=== PATIENT | female | born 1935 | race Caucasian/White ===

== ENCOUNTER 2018-10-12 22:14 | Inpatient (IN) | payer MEDICARE, MEDICAID ==
[~2018-10-12] VITALS: Ht 162.6 cm; Wt 56.7 kg
--- NOTE | 2018-10-12 22:35 | NUR ---
Pt bib ambulanz unit #[id number] from [facility] for medical clearance. Pt is on a 5150 for GD. Upon assessment, pt is AAO x 1 and speaking in complete sentences. Respirations even and unlabored. Pt denies CP, SOB, N/V/D. Pt placed in monitor. Safe environment implemented.
[2018-10-12] MEDS ORDERED: CRAN450C PO (22:42)
[2018-10-12] MEDS ORDERED: MELA3TAB PO (22:42)
[2018-10-12] MEDS ORDERED: MAG355OR18 PO (22:42)
[2018-10-12] MEDS ORDERED: MAGN400O6 PO (22:42)
[2018-10-12] MEDS ORDERED: MULT1TAB73 PO (22:42)
[2018-10-12] MEDS ORDERED: ACET-2154 PO (22:42)
[2018-10-12 22:48] LABS: BASOPHILS % (AUTO) 0.7 % (0.0-2.0); EOSINOPHILS # (AUTO) 0.2 K/uL (0.0-0.7); EOSINOPHILS % (AUTO) 2.6 % (0.0-7.0); HEMATOCRIT 38.1 % (31.2-41.9); HEMOGLOBIN 12.9 g/dL (10.9-14.3); LYMPHOCYTES # (AUTO) 1.9 K/uL (20.0-40.0); MEAN CORPUSCULAR HEMOGLOBIN 30.7 uug (24.7-32.8); MEAN CORPUSCULAR HGB CONC 34 g/dL (32.3-35.6); MEAN CORPUSCULAR VOLUME 90.8 fL (75.5-95.3); MONOCYTES # (AUTO) 0.3 K/uL (2.0-10.0); MONOCYTES % (AUTO) 5.4 % (0.0-11.0); NEUTROPHILS # (AUTO) 3.8 K/uL (1.8-8.9); NEUTROPHILS % (AUTO) 60.3 % (38.5-71.5); PLATELET COUNT (AUTO) 279 K/uL (179-408); WHITE BLOOD COUNT (AUTO) 6.3 K/uL (3.8-11.8)
[2018-10-12 23:04] LABS: CARBON DIOXIDE 28 mmol/L (21-32); CHLORIDE 103 mmol/L (98-107); CREATININE 0.8 mg/dL (0.6-1.3); GLUCOSE 146 mg/dL (74-106); POTASSIUM 3.8 mmol/L (3.5-5.1); UREA NITROGEN, BLOOD 24 mg/dL (7-18)
[2018-10-12 23:09] LABS: ETHANOL < 3 MG/DL (0-0)
[2018-10-12 23:17] LABS: ALANINE AMINOTRANSFERASE 28 U/L (14-59); ALKALINE PHOSPHATASE 97 U/L (50-136); ASPARTATE AMINOTRANSFERASE 19 U/L (15-37); BILIRUBIN,DIRECT < 0.1 mg/dL (0.0-0.2); BILIRUBIN,TOTAL 0.2 mg/dL (0.2-1.0); TOTAL PROTEIN, SERUM 7.3 g/dL (6.4-8.2)
[2018-10-12 23:28] LABS: ACETAMINOPHEN < 2.0 ug/mL (10-30)
[2018-10-12 23:58] LABS: *BILIRUBIN,URIN NEGATIVE (NEGATIVE); *BLOOD, URINE NEGATIVE (NEGATIVE); *CLARITY,URINE CLEAR (CLEAR); *COLOR,URINE YELLOW (YELLOW); *KETONES,URINE NEGATIVE (NEGATIVE); *UROBILINOGEN,URINE 0.2 E.U./dl (NORMAL); LEUKOCYTE ESTERASE ,URINE NEGATIVE (NEGATIVE); NITRITE, URINE NEGATIVE (NEGATIVE); PH,URINE 5.5 (5.0-8.0); UGLUCOSE NEGATIVE (NEGATIVE)
[2018-10-13] MEDS ORDERED: MAG HYDROX/AL HYDROX/SIMETH 30 ML LIQUID UDC PO PRN
[2018-10-13] MEDS ORDERED: ACETAMINOPHEN 325 MG TABLET PO PRN
[2018-10-13 00:02] LABS: *AMPHETAMINE, URINE NEGATIVE (NEGATIVE); *BARBITURATE, URINE NEGATIVE (NEGATIVE); *CANNABINOID, URINE NEGATIVE (NEGATIVE); *COCCAINE, URINE NEGATIVE (NEGATIVE); *OPIATE, URINE NEGATIVE (NEGATIVE); *PHENCYCLIDINE SCREEN,URINE NEGATIVE (NEGATIVE)
[2018-10-13 00:21] LABS: BACTERIA,URINE NONE SEEN /HPF (NONE SEEN); MUCUS,URINE MODERATE /LPF (0-FEW); RBC,URINE 0-3 /HPF (0-3); RENAL EPITHELIAL CELLS,URINE FEW /LPF (NONE SEEN); SQUAMOUS EPITHELIAL CELL,UR FEW /HPF (NONE SEEN); TRANSITIONAL EPI CELLS,URINE FEW /LPF (NONE SEEN)
--- NOTE | 2018-10-13 00:31 | NUR ---
Pt medically cleared by JOSEPH SKAGGS.
--- NOTE | 2018-10-13 00:31 | NUR ---
Report given to Irvin KEARNS
--- NOTE | 2018-10-13 00:37 | NUR ---
Pt. admitted to MHU , under care of Dr. Wright/Michelle Belongs List completed
[2018-10-13] MEDS ORDERED: hydrALAZINE HCL 25 MG TABLET PO ONE (01:15)
--- NOTE | 2018-10-13 01:20 | NUR ---
GPS: Admitted to unit earlier an 83 yr.old female who was medically cleared in our ER. Pt.is on a 72 hour hold for GD. Pt.has been refusing to eat,agitated,pacing in her room and unable to be re-directed at her facility,per hold. Pt.is alert to self,confused,disoriented. Unable to say why she's in the hosp. Poor insight to present situation. Gait is slow and steady but with hx of falls. Safety emphasized. Body assessment/personal belongings completed. B/P noted to be high at this time 190/100. HANDLE ATTACHER Oscar Perez informed with orders. Denies any headaches,blurred vision at this time. Apresoline 25mg given PO X1 as ordered. Will continue to monitor.
[2018-10-13 01:27] VITALS: BP 190/100
--- NOTE | 2018-10-13 06:42 | NUR ---
GPS: Pt.is anxious,pacing,easily irritable when being re-directed. Confused and disoriented. Staff attempted to re-check pts B/P but strongly refused despite explanation of importance. Ativan 0.5mg offered but refused despite numerous attempts by staff. Safe environment provided. Will continue to monitor behavior for further escalation.
[2018-10-13] MEDS: LORAZEPAM 0.5 MG TABLET PO PRN ×2 (06:46→10:40)
[2018-10-13 07:30] VITALS: BP 146/88
--- NOTE | 2018-10-13 12:14 | NUR ---
Activity group note: Patients were asked to answer the question of "What is one thing you would change about yourself and why? Subjective: "No, not really" Objective: Patient appeared happy to participate in activity and sit in group. Patient did not want to answer clinical topic question. Assessment: Patient needs help with expressing self. Plan: Encourage group attendance as scheduled. psychiatric social worker will help patient to express self by speaking with her on a one to one basis. psychiatric social worker will continue to encourage group participation.
[2018-10-13] MEDS ORDERED: MAGNESIUM HYDROXIDE 30 ML LIQUID UDC PO PRN ×2 (12:15)
[2018-10-13] MEDS: CLOTRIMAZOLE 1% CREAM 30 GM TUBE TOP SCH ×2 (14:50→20:08)
[2018-10-13 16:00] VITALS: BP 156/107
[2018-10-13 20:02] VITALS: BP 146/78
[2018-10-13] MEDS: ESCITALOPRAM OXALATE 10 MG TABLET PO SCH (20:07)
[2018-10-13] MEDS: risperiDONE 0.5 MG TABLET PO SCH (20:07)
[2018-10-13] MEDS: TEMAZEPAM 7.5 MG CAPSULE PO PRN (22:18)
[2018-10-14 07:30] VITALS: BP 133/89
[2018-10-14] MEDS: MULTIVITAMINS,THERAPEUTIC TABLET PO SCH (08:11)
[2018-10-14] MEDS: CLOTRIMAZOLE 1% CREAM 30 GM TUBE TOP SCH ×2 (08:12→22:05)
[2018-10-14] MEDS ORDERED: Medication Not On Formulary EA (Multivitamins (Multivitamin) 1 EACH) PO SCH (09:00)
[2018-10-14] MEDS ORDERED: Medication Not On Formulary EA (Cranberry Fruit Concentrate (Cranberry) 450 MG) PO SCH (09:00)
--- NOTE | 2018-10-14 14:35 | NUR ---
Gps/Hand Presser- Dr Martinez was called informed of patient positive MRSA Nares, orders received. Patient started on contact isolations, observed, pt. informed.
--- NOTE | 2018-10-14 15:13 | NUR ---
Gps/Master Machinist- Patient tends to wander around, unable to find her room, speech incoherent/confused, no initiation to feed self, needed prompting , staff tries to assist patient w/ her meals.Poor insight, monitored safety.
[2018-10-14 16:00] VITALS: BP 137/69
[2018-10-14] MEDS: MUPIROCIN 2% OINT 22 GM TUBE NS SCH ×2 (16:20→22:05)
--- NOTE | 2018-10-14 17:50 | NUR ---
Gps/Service Crew Leader- Continue to assist pt. w/ her meals, not initiating tasks to feed self.Contact isolation observed ,in progress.
--- NOTE | 2018-10-14 18:17 | NUR ---
Gps/Padding Gluer- Patient will be transfer to room # 223, as MHU (Psych overflow) patient on contact isolation , r/t MRSA nares. Report was given to Georgette Parekh.
--- NOTE | 2018-10-14 18:45 | NUR ---
[facility], not in any form of distress. Alert x1-2. Denies any pain. Re-oriented as necessary. Tend to pace around but redirected. On contact isolation for MRSA. Sitter at bedside.
[2018-10-14 20:00] VITALS: BP 156/87
[2018-10-14] MEDS: risperiDONE 0.5 MG TABLET PO SCH (22:10)
[2018-10-14] MEDS: ESCITALOPRAM OXALATE 10 MG TABLET PO SCH (22:11)
[2018-10-15] MEDS: MULTIVITAMINS,THERAPEUTIC TABLET PO SCH (08:12)
[2018-10-15] MEDS: CLOTRIMAZOLE 1% CREAM 30 GM TUBE TOP SCH ×2 (08:13→20:09)
[2018-10-15] MEDS: MUPIROCIN 2% OINT 22 GM TUBE NS SCH ×2 (08:13→20:08)
[2018-10-15 10:11] VITALS: BP 131/67
--- NOTE | 2018-10-15 11:37 | NUR ---
Initial Discharge Instructions: The patient currently resides at [facility] [facility] [facility] [place] [address] [[phone]]. Per Kassandra at the SNF, the patient may return when ready. ANTHONY Manager Proposal spoke to patient's son, Alex Galarza ([phone]) who states he would like pt to return there as well. Per son, he is the conservator of the patient, and states he will bring the appropriate paperwork the next time he visits the patient. The ANTHONY Espino and other SW will continue to collaborate with DPOA and interdisciplinary team to ensure a safe and proper discharge planning.
--- NOTE | 2018-10-15 13:42 | NUR ---
Discharge Planning: SW Director Packaging followed up with pt.s son, Alex Guerrier [[phone]] ON 10/15/18 regarding conservatorship paperwork he was to drop off on 10/13/18 and Director Packaging informed Alex that patient has now been moved to medical floor in room 223. Per son, he was not able to make it on 10/13/18 but he is planning to drop off the paperwork on Thursday10/16/18 during visiting hours 3-6 pm.
[2018-10-15] MEDS: LORAZEPAM 0.5 MG TABLET PO PRN (15:45)
[2018-10-15] MEDS: CLONIDINE HCL 0.1 MG TABLET PO PRN (19:51)
[2018-10-15 20:08] VITALS: BP 161/97
[2018-10-15] MEDS: risperiDONE 0.5 MG TABLET PO SCH (20:08)
[2018-10-15] MEDS: ESCITALOPRAM OXALATE 10 MG TABLET PO SCH (20:08)
[2018-10-15] MEDS: TEMAZEPAM 7.5 MG CAPSULE PO PRN (22:11)
[2018-10-16 05:44] VITALS: BP 158/87
--- NOTE | 2018-10-16 06:48 | NUR ---
PATIENT ASLEEP IN BED. SLEPT WELL. PATIENT SLEPT 6 HOURS AND 30 MINUTES. CONFUSED AND DISORIENTED BUT ABLE TO REDIRECT. SITTER AT BEDSIDE FOR SAFETY. ALL NEEDS ATTENDED. WILL CONTINUE TO MONITOR.
[2018-10-16 07:51] VITALS: BP 155/77
--- NOTE | 2018-10-16 08:00 | NUR ---
awake, confused, cooperative, able to redirect, sitter at bedside, safety environment maintained, assisted by sitter with needs. no distress noted, took breakfast well
[2018-10-16] MEDS: CLOTRIMAZOLE 1% CREAM 30 GM TUBE TOP SCH ×2 (08:41→20:21)
[2018-10-16] MEDS: MULTIVITAMINS,THERAPEUTIC TABLET PO SCH (08:41)
[2018-10-16] MEDS: MUPIROCIN 2% OINT 22 GM TUBE NS SCH ×2 (08:41→20:21)
--- NOTE | 2018-10-16 12:00 | NUR ---
GUN PROFILER sitter at bedside, pt initiates task for meal, mrsa nares isolation observed, sitting on chair as need with assist
[2018-10-16 12:14] VITALS: BP 148/79
--- NOTE | 2018-10-16 16:00 | NUR ---
Received from MHU overflow alert, confused. On Room air, no shortness of breath noted. No c/o pain. Noted redness on forehead. Kept on isolation room for contact MRSA nares. Ambulates with steady gait. No noted skin breakdown. Frequently states that she wants to go home, re directed. will continue to monitor.
--- NOTE | 2018-10-16 16:07 | NUR ---
wheeled to [facility] Rm 139 in stable condition by URMILA nixon
[2018-10-16 20:00] VITALS: BP 179/88
[2018-10-16] MEDS: risperiDONE 0.5 MG TABLET PO SCH (20:20)
[2018-10-16] MEDS: ESCITALOPRAM OXALATE 10 MG TABLET PO SCH (20:20)
[2018-10-16] MEDS: TEMAZEPAM 7.5 MG CAPSULE PO PRN (21:34)
[2018-10-16] MEDS: CLONIDINE HCL 0.1 MG TABLET PO PRN (21:35)
[2018-10-17] MEDS: LORAZEPAM 0.5 MG TABLET PO PRN (00:29)
[2018-10-17] MEDS: ONDANSETRON ODT 4 MG TAB.RAPDIS SL PRN ×2 (03:10→20:26)
--- NOTE | 2018-10-17 05:04 | NUR ---
Received Pt wandering aimlessly around the unit not compliant with contact isolation precautions for MRSA/nares, and uncooperative with staff direction to wear a face mask or remain in her room for safety reasons due to the infectious process. A+Ox1, Pt is confused, disorganized, disoriented, forgetful, and requires frequent redirection. Pt initially refused VS and required extensive prompting and encouragement to take her medications. Pt later calmed and allowed VS to be taken. BP elevated, Catapres 0.1mg administered as ordered, Pt refused re-check of BP and became agitated and combative with staff when she saw the VS machine. Pt remained uncooperative and argumentative, continuously wandering out of her room and into other's rooms. Pt was eventually placed in marylou chair for safety reasons. Pt remained disorganized, and constantly disrobed despite frequent directions to remain clothed. Pt given Restoril 7.5mg for restlessness which was ineffective. Ativan 0.5mg administered for anxiety, also ineffective. Pt remains in marylou chair in front of nurse's station for safety. Rash noted under bilateral breasts, Clomitrozole applied as ordered. Pt remains resistant to care. Breathing even and unlabored, appears to be in no acute physical distress.
--- NOTE | 2018-10-17 06:36 | NUR ---
Pt given shower this morning, slept a total of 1 hour.
[2018-10-17 07:30] VITALS: BP 157/90
[2018-10-17] MEDS ORDERED: AMLODIPINE 5 MG TABLET PO SCH (09:00)
[2018-10-17] MEDS: MUPIROCIN 2% OINT 22 GM TUBE NS SCH ×2 (10:24→20:27)
[2018-10-17] MEDS: MULTIVITAMINS,THERAPEUTIC TABLET PO SCH (10:24)
[2018-10-17] MEDS: CLOTRIMAZOLE 1% CREAM 30 GM TUBE TOP SCH ×2 (10:25→20:27)
[2018-10-17 15:17] VITALS: BP 136/79
[2018-10-17 20:00] VITALS: BP 121/81
[2018-10-17] MEDS: risperiDONE 0.25 MG TABLET PO SCH (20:25)
[2018-10-17] MEDS: AMLODIPINE 5 MG TABLET PO SCH (20:26)
[2018-10-17] MEDS: ESCITALOPRAM OXALATE 10 MG TABLET PO SCH (20:27)
[2018-10-17] MEDS ORDERED: risperiDONE 0.5 MG TABLET PO SCH (21:00)
[2018-10-17] MEDS: TEMAZEPAM 7.5 MG CAPSULE PO PRN (22:01)
--- NOTE | 2018-10-18 06:23 | NUR ---
Pt remains disoriented, confused, and disorganized, Pt c/o nausea and abd pain early in the shift, administered Zofran 4mg as ordered with good effect. Compliant with crushed medications, snacks given and consumed 100%. Pt noted to be restless, Restoril 7.5mg administered with good effect, Pt slept throughout most of the shift visible in front of the nurse's station, breathing even and unlabored. In no acute physical distress.
[2018-10-18 07:30] VITALS: BP 119/74
[2018-10-18] MEDS: risperiDONE 0.25 MG TABLET PO SCH ×2 (08:51→20:06)
[2018-10-18] MEDS: MUPIROCIN 2% OINT 22 GM TUBE NS SCH ×2 (08:51→20:06)
[2018-10-18] MEDS: AMLODIPINE 5 MG TABLET PO SCH ×2 (08:51→20:09)
[2018-10-18] MEDS: CLOTRIMAZOLE 1% CREAM 30 GM TUBE TOP SCH ×2 (08:51→20:06)
[2018-10-18] MEDS: MULTIVITAMINS,THERAPEUTIC TABLET PO SCH (09:00)
[2018-10-18] MEDS: LORAZEPAM 0.5 MG TABLET PO PRN ×2 (12:24→19:37)
[2018-10-18 15:18] VITALS: BP 91/58
[2018-10-18 20:00] VITALS: BP 113/77
[2018-10-18] MEDS: ESCITALOPRAM OXALATE 10 MG TABLET PO SCH (20:05)
[2018-10-19] MEDS: TEMAZEPAM 7.5 MG CAPSULE PO PRN (00:01)
[2018-10-19] MEDS: LORAZEPAM 0.5 MG TABLET PO PRN (01:07)
[2018-10-19 07:25] LABS: BASOPHILS % (AUTO) 0.4 % (0.0-2.0); EOSINOPHILS # (AUTO) 0.1 K/uL (0.0-0.7); EOSINOPHILS % (AUTO) 1.1 % (0.0-7.0); HEMATOCRIT 37.2 % (31.2-41.9); HEMOGLOBIN 12.8 g/dL (10.9-14.3); LYMPHOCYTES # (AUTO) 1.2 K/uL (20.0-40.0); LYMPHOCYTES % (AUTO) 18.1 % (20.5-51.5); MEAN CORPUSCULAR HEMOGLOBIN 31.1 uug (24.7-32.8); MEAN CORPUSCULAR HGB CONC 35 g/dL (32.3-35.6); MEAN CORPUSCULAR VOLUME 90.2 fL (75.5-95.3); MONOCYTES # (AUTO) 0.6 K/uL (2.0-10.0); MONOCYTES % (AUTO) 8.3 % (0.0-11.0); NEUTROPHILS # (AUTO) 4.8 K/uL (1.8-8.9); NEUTROPHILS % (AUTO) 72.1 % (38.5-71.5); PLATELET COUNT (AUTO) 223 K/uL (179-408); RED BLOOD CELL COUNT(AUTO) 4.12 MIL/uL (3.63-4.92); WHITE BLOOD COUNT (AUTO) 6.7 K/uL (3.8-11.8)
[2018-10-19 07:30] VITALS: BP 165/50
[2018-10-19 07:45] LABS: CARBON DIOXIDE 28 mmol/L (21-32); CHLORIDE 103 mmol/L (98-107); CREATININE 0.6 mg/dL (0.6-1.3); GLUCOSE 112 mg/dL (74-106); POTASSIUM 3.7 mmol/L (3.5-5.1); UREA NITROGEN, BLOOD 31 mg/dL (7-18)
[2018-10-19] MEDS: AMLODIPINE 5 MG TABLET PO SCH ×2 (08:21→21:12)
[2018-10-19] MEDS: MULTIVITAMINS,THERAPEUTIC TABLET PO SCH (08:21)
[2018-10-19] MEDS: risperiDONE 0.25 MG TABLET PO SCH ×2 (08:21→21:05)
[2018-10-19] MEDS: MUPIROCIN 2% OINT 22 GM TUBE NS SCH ×2 (09:40→21:13)
[2018-10-19] MEDS: CLOTRIMAZOLE 1% CREAM 30 GM TUBE TOP SCH ×2 (09:41→21:13)
--- NOTE | 2018-10-19 11:16 | NUR ---
Firearms Report: ANTHONY completed and submitted [employer] firearms report for 5250 GD certification.
[2018-10-19 15:40] VITALS: BP 133/71
[2018-10-19 20:35] VITALS: BP 161/76
[2018-10-19] MEDS: CLONIDINE HCL 0.1 MG TABLET PO PRN (20:35)
--- NOTE | 2018-10-19 20:35 | NUR ---
RECEIVED PATIENT SITTING UP IN A TAZ CHAIR, SHE WAS NOTED ASLEEP BUT EASILY AROUSABLE. PT WAS CALM PLEASANT AND COOPERATIVE UPON APPROACHED. PATIENT'S B/P IS 161/76 AND PULSE 71. CLONIDINE 0.1MG PO PRN WAS GIVEN FOR SBP >160MMHG. SHE WAS REASSURED FOR HER SAFETY. WILL CONTINUE TO MONITOR.
[2018-10-19] MEDS: ESCITALOPRAM OXALATE 10 MG TABLET PO SCH (21:05)
--- NOTE | 2018-10-19 21:15 | NUR ---
PATIENT'S B/P WAS RECHECKED: BP 152/83MMHG. NORVASC 5MG PO QHS WAS GIVEN WELL THE REST OF HER QHS MEDICATION. PATIENT REMAINS COMPLIANT WITH MEDICATION REGIMENT, NO AGGRESSIVE/ COMBATIVE BX WAS NOTED AT THIS TIME. WILL GONZALOUE TO MONITOR.
[2018-10-19 22:44] VITALS: BP 110/60
[2018-10-20 07:30] VITALS: BP 110/58
[2018-10-20] MEDS: risperiDONE 0.25 MG TABLET PO SCH ×2 (09:39→20:14)
[2018-10-20] MEDS: AMLODIPINE 5 MG TABLET PO SCH ×2 (09:40→20:15)
[2018-10-20] MEDS: MULTIVITAMINS,THERAPEUTIC TABLET PO SCH (09:40)
[2018-10-20] MEDS: CLOTRIMAZOLE 1% CREAM 30 GM TUBE TOP SCH ×2 (09:42→20:16)
[2018-10-20] MEDS: MUPIROCIN 2% OINT 22 GM TUBE NS SCH ×2 (09:42→20:16)
--- NOTE | 2018-10-20 15:53 | NUR ---
GROUP NOTE: Patients were asked to attend group to draw pictures of their favorite animals and describe how that animal may represent who they are. S: "---" O: Patient was not present in group A: She presented sleeping at the time it began. Patient was not able to be woken up. P: SW will continue to encourage pt to attend group as scheduled.
[2018-10-20 16:00] VITALS: BP 117/62
[2018-10-20] MEDS: ESCITALOPRAM OXALATE 10 MG TABLET PO SCH (20:14)
--- NOTE | 2018-10-20 20:15 | NUR ---
RECEIVED PATIENT IN HER ROOM ASLEEP BUT EASILY AROUSABLE. SHE IS NOTED A/O X 1, CALM AND PLEASANT UPON APPROACHED. V/S STABLE AT THIS TIME. TEMP 99.6F AXILLARY. SHE REFUSED TO HAVE HER TEMPERATURE TAKEN ORALLY, SHE STARED GETTING IRRITATED, SHE ALSO C/O RT LEG CRAMPS. PATIENT WAS REPOSITION. TYLENOL 650MG PO PRN WAS GIVEN FOR LEG CRAMPS. PATIENT CONTINUE COMPLIANT WITH MEDICATION REGIMENT. SHE WAS REASSURED FOR HER SAFETY. WILL CONTINUE TO MONITOR.
--- NOTE | 2018-10-20 21:20 | NUR ---
F/U ON PATIENT'S LEG CRAMPS, SHE DENIES PAIN OR DISCOMFORT, SHE STATED "I DON'T HAVE ANY PAIN, I FEEL FINE". PATIENT'S TEMP IS NOW 98.3F AXILLARY, SHE CONTINUE REFUSING TO HAVE HER TEMP TAKEN ORALLY. SAFETY IS EMPHASIS. WILL CONTINUE TO MONITOR.
[2018-10-20 21:30] VITALS: BP 132/72
--- NOTE | 2018-10-20 21:40 | NUR ---
Ritu GEIGER NP, WHO WAS IN THE UNIT, WAS ADVISED OF PATIENT'S TEMP ON 99.6 AXILLARY AT 1999 THEN 98.3F AXILLARY AT 2114. PER TARUN GEIGER TO CONTINUE MONITORING HER TEMPERATURE. WILL CONTINUE TO MONITOR CLOSELY.
[2018-10-21 07:30] VITALS: BP 140/70
[2018-10-21] MEDS: MULTIVITAMINS,THERAPEUTIC TABLET PO SCH (08:29)
[2018-10-21] MEDS: risperiDONE 0.25 MG TABLET PO SCH (08:29)
[2018-10-21 08:32] VITALS: BP 140/70
[2018-10-21] MEDS: AMLODIPINE 5 MG TABLET PO SCH (08:32)
[2018-10-21] MEDS: CLOTRIMAZOLE 1% CREAM 30 GM TUBE TOP SCH (08:33)
--- NOTE | 2018-10-21 10:56 | NUR ---
DC Note: Patient will be discharged back to [facility] [[address] [facility], [place] [address]; ] via ambulance at 1pm. Spoke with Guadalupe at the facility who states they are ready to accept the patient today. Spoke with patients son, Alex Guerrier ([phone]) who is aware and agreeable with discharge plan. Patient is alert and oriented x1 and is cooperative. Patient will follow-up at the facility with Dr. Vuong (Dishwasher Busser) and Dr. Wright (Psychiatrist).
[2018-10-21] MEDS: LORAZEPAM 0.5 MG TABLET PO PRN (13:31)
--- NOTE | 2018-10-21 13:50 | NUR ---
Gps/Wood Gluer- Discharged via ambulance, patient alert, no distress, cooperative, less anxious.. Patient was well informed she is going back to [facility].
--- NOTE | 2018-10-21 13:55 | NUR ---
Gps/Small Lot Operator- Called [employer] , informed patient left dentures and quad cane, dispancher was informed Trip # [id number].
--- NOTE | 2018-10-21 16:30 | NUR ---
Gps/Operations Supervisor-Dentures(upper and lower dentures) , wide base cane, coloring pencils will be taken to [facility] by Rn February( belongings got left behind by ambulance)
== END 2018-10-21 14:00 | DRG 885 ==
LOC: ER 22:14 → GPS 10-13 00:33 → GPSOV 10-14 18:35 → GPS 10-16 16:14
PROVIDERS: ADMIT Psychiatry & Neurology Psychiatry; ATTEND Nurse Practitioner Acute Care
DX: F32.3 Major depressive disorder, single episode, severe with psychotic features (principal); K21.9 Gastro-esophageal reflux disease without esophagitis; F41.9 Anxiety disorder, unspecified; Z91.81 History of falling; M89.9 Disorder of bone, unspecified; E86.0 Dehydration; L21.9 Seborrheic dermatitis, unspecified; I10 Essential (primary) hypertension; F03.90 Unspecified dementia, unspecified severity, without behavioral disturbance, psychotic disturbance, mood disturbance, and anxiety; R73.9 Hyperglycemia, unspecified; Z22.322 Carrier or suspected carrier of Methicillin resistant Staphylococcus aureus
CPT/HCPCS: 36415; 36569; 71045; 80307; 85025; 93005; A4663; C1758; G0480; G0480-TC; Q0162